=== PATIENT | male | born 1995 | race Caucasian/White ===

== ENCOUNTER 2017-01-25 20:03 | Emergency (ER) | payer BC ==
[~2017-01-25] VITALS: Ht 172.7 cm; Wt 76.7 kg
[2017-01-25 20:08] VITALS: BP 153/94
== END 2017-01-25 20:53 | disposition home or self-care (01) ==
LOC: ER 20:03
DX: H61.23 Impacted cerumen, bilateral (principal); H91.93 Unspecified hearing loss, bilateral; F17.200 Nicotine dependence, unspecified, uncomplicated
CPT/HCPCS: 99282; A4606; Z7610

== ENCOUNTER 2019-08-06 15:41 | Emergency (ER) | payer BC ==
[~2019-08-06] VITALS: Ht 172.7 cm; Wt 74.8 kg
--- NOTE | 2019-08-06 16:00 | NUR ---
BILATERAL FLANK PAIN X 1 WEEK, BURNING SENSATION DURING URINATION. ON ROOM AIR, BREATHING EVENLY AND UNLABORED. CONNECTED TO THE MONITOR AND PULSE OX. WILL CONTINUE TO MONITOR ACCORDINGLY.
[2019-08-06] MEDS ORDERED: KETOROLAC TROMETHAMINE INJ 30 MG/ML VIAL IV ONE (16:30)
[2019-08-06 16:32] LABS: BASOPHILS % (AUTO) 0.4 % (0.0-2.0); EOSINOPHILS % (AUTO) 0.1 % (0.0-6.0); HEMATOCRIT 44 % (39-51); HEMOGLOBIN 15.1 g/dL (13.5-17.5); LYMPHOCYTES # (AUTO) 0.9 /CMM (0.8-4.8); LYMPHOCYTES % (AUTO) 12.4 % (20.0-44.0); MEAN CORPUSCULAR HGB CONC 34 g/dl (31.0-36.0); MEAN CORPUSCULAR VOLUME 86 fL (80-96); MONOCYTES # (AUTO) 0.7 /CMM (0.1-1.30); MONOCYTES % (AUTO) 9.4 % (2.0-12.0); NEUTROPHILS # (AUTO) 5.4 /CMM (1.8-8.9); NEUTROPHILS % (AUTO) 77.7 % (43.0-81.0); PLATELET COUNT (AUTO) 211 /CMM (150-450); RED BLOOD CELL COUNT(AUTO) 5.13 MIL/uL (4.5-6.0)
[2019-08-06] MEDS ORDERED: KETOROLAC TROMETHAMINE INJ 30 MG/ML VIAL ONE (16:33)
[2019-08-06 16:38] LABS: CALCIUM, SERUM 9.4 mg/dL (8.5-10.1); POTASSIUM 3.4 mmol/L (3.5-5.1)
[2019-08-06 16:43] LABS: APPEARANCE,URINE Clear (CLEAR); BILIRUBIN,URINE Negative (NEGATIVE); BLOOD, URINE Negative Ery/uL (NEGATIVE); COLOR,URINE Yellow (YELLOW); KETONES,URINE Negative (NEGATIVE); LEUKOCYTE ESTERASE ,URINE Negative (NEGATIVE); NITRITE, URINE Negative (NEGATIVE); PH,URINE 8.5 (5.0-8.0); PROTEIN,URINE Negative (NEGATIVE); UGLUCOSE Negative (NEGATIVE); UROBILINOGEN,URINE 0.2 EU/dL (0.2)
[2019-08-06 16:49] LABS: ALBUMIN 4.4 g/dL (3.4-5.0); BILIRUBIN,DIRECT 0.1 mg/dL (0.0-0.2); BILIRUBIN,TOTAL 0.5 mg/dL (0.2-1.0); TOTAL PROTEIN, SERUM 8.2 g/dL (6.4-8.2)
[2019-08-06 17:26] VITALS: BP 140/70
--- NOTE | 2019-08-06 17:27 | NUR ---
Patient discharged to home in stable condition. Written and verbal after care instructions given. Patient verbalizes understanding of instruction.IV removed. Catheter intact and site benign. Pressure and 4x4 applied to site. No bleeding noted.
== END 2019-08-06 17:27 | disposition home or self-care (01) ==
LOC: ER 15:41
DX: R10.9 Unspecified abdominal pain (principal); R30.0 Dysuria
CPT/HCPCS: 36415; 74176; 80048; 80076; 81001; 83690; 85025; 96374; 99284; J1885; 81000-TC

== ENCOUNTER 2020-01-01 21:48 | Emergency (ER) | payer BC ==
[~2020-01-01] VITALS: Ht 172.7 cm; Wt 77.1 kg
--- NOTE | 2020-01-01 22:02 | NUR ---
BIB SELF C/O GEN RASH FOR 2 DAYS, UNKNOWN ORIGIN. REPORTS URTICARIA. DENIES SOB, PAIN, DIZZINESS, WEAKNESS. NO ACUTE DISTRESS NOTED. RR EVEN AND UNLABORED ON RA. MADE COMFORTABLE AND READY FOR EVAL.
[2020-01-01] MEDS ORDERED: FLUCONAZOLE (100 MG) 100 MG TABLET ONE (22:43)
--- NOTE | 2020-01-01 22:44 | NUR ---
PO MED GIVEN PER MD ORDER. 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
[2020-01-01 22:52] LABS: BASOPHILS % (AUTO) 0.2 % (0.0-2.0); EOSINOPHILS % (AUTO) 0.1 % (0.0-6.0); HEMATOCRIT 44 % (39-51); HEMOGLOBIN 15.1 g/dL (13.5-17.5); LYMPHOCYTES # (AUTO) 1.3 /CMM (0.8-4.8); LYMPHOCYTES % (AUTO) 11.1 % (20.0-44.0); MEAN CORPUSCULAR HGB CONC 34 g/dl (31.0-36.0); MEAN CORPUSCULAR VOLUME 85 fL (80-96); MONOCYTES % (AUTO) 8.8 % (2.0-12.0); NEUTROPHILS # (AUTO) 9.2 /CMM (1.8-8.9); NEUTROPHILS % (AUTO) 79.8 % (43.0-81.0); PLATELET COUNT (AUTO) 177 /CMM (150-450); RED BLOOD CELL COUNT(AUTO) 5.19 MIL/uL (4.5-6.0); WHITE BLOOD COUNT (AUTO) 11.5 K/uL (4.3-11.0)
[2020-01-01 22:57] LABS: CALCIUM, SERUM 9.2 mg/dL (8.5-10.1); CREATININE 0.9 mg/dL (0.6-1.3); POTASSIUM 3.9 mmol/L (3.5-5.1)
[2020-01-01] MEDS ORDERED: FLUCONAZOLE (100 MG) 100 MG TABLET PO ONE (23:00)
[2020-01-01 23:03] LABS: BILIRUBIN,TOTAL 0.5 mg/dL (0.2-1.0); TOTAL PROTEIN, SERUM 8.1 g/dL (6.4-8.2)
[2020-01-01 23:16] VITALS: BP 156/98
--- NOTE | 2020-01-01 23:16 | NUR ---
Patient discharged to home in stable condition. Written and verbal after care instructions given. Patient verbalizes understanding of instruction.
== END 2020-01-01 23:17 | disposition home or self-care (01) ==
LOC: ER 21:50
DX: R21 Rash and other nonspecific skin eruption (principal)
CPT/HCPCS: 36415; 80053-TC; 85025-TC